=== PATIENT | female | born 1995 | race Caucasian/White ===

== ENCOUNTER 2017-05-09 09:13 | Emergency (ER) | payer BC, OTHER ==
--- NOTE | 2017-05-09 10:12 | ER Document Report ---
ED Medical Screen (RME) - General Mode of Arrival: Ambulatory Information source: Patient TRAVEL OUTSIDE OF THE [place] IN LAST 30 DAYS: No - HPI Patient complains to provider of: Vomiting and diarrhea Onset: This morning - 0300 Associated Symptoms: Other - see notes above <BARBARA DE LEON - Last Filed: 05/09/17 10:52> <JOHNY BOSS - Last Filed: 05/09/17 21:02> - General Chief Complaint: Nausea/Vomiting/Diarrhea Stated Complaint: DIARRHEA Time Seen by Provider: 05/09/17 09:59 Notes: 21 year old female with no prior medical problems presents to the ED complaining of vomiting and diarrhea that started at 0300 this morning. Patient explains that symptoms began while she was laying in bed when she suddenly began having epigastric abdominal pain. Patient reports that she has had 4 episodes of vomiting and countless episodes of diarrhea since they began early this morning. Patient denies any blood in stool or vomit. Patient denies vaginal discharge, but complains of some burning with urination. Patient's LMP 04/15/2017. (BARBARA DE LEON) - Related Data Allergies/Adverse Reactions: No Known Allergies Allergy (Unverified 05/09/17 09:16) Home Medications: Current Home Medications Dextroamphetamine/Amphetamine [Adderall 20 mg Tablet] 1 tab PO DAILY 05/09/17 [ History] Etonogestrel/Ethinyl Estradiol [Nuvaring Vaginal Ring] 1 dose VG [id number] [History] Past Medical History - General Information source: Patient - Social History Frequency of alcohol use: Rare Drug Abuse: None Renal/ Medical History: Denies: Hx Peritoneal Dialysis Past Surgical History: Reports: Hx Orthopedic Surgery - R ACL, meniscus R knee <BARBARA DE LEON - Last Filed: 05/09/17 10:52> Review of Systems - Review of Systems Constitutional: No symptoms reported EENT: No symptoms reported Cardiovascular: No symptoms reported Respiratory: No symptoms reported Gastrointestinal: See HPI, Abdominal pain - epigastric, Diarrhea, Vomiting Genitourinary: See HPI, Burning Female Genitourinary: No symptoms reported. denies: Vaginal discharge Musculoskeletal: No symptoms reported Skin: No symptoms reported Hematologic/Lymphatic: No symptoms reported Neurological/Psychological: No symptoms reported -: Yes All other systems reviewed and negative <BARBARA DE LEON - Last Filed: 05/09/17 10:52> Physical Exam - General General appearance: Alert In distress: None - Respiratory Respiratory status: No respiratory distress Breath sounds: Normal - Cardiovascular Rhythm: Regular Heart sounds: Normal auscultation - Abdominal Inspection: Normal Distension: No distension Bowel sounds: Normal Tenderness: Tender - RUQ tenderness to palpation - Psychological Associated symptoms: Normal affect, Normal mood <BARBARA DE LEON - Last Filed: 05/09/17 10:52> - Vital signs Vitals: Temp Pulse Resp BP Pulse Ox 98.1 F 107 H 17 130/70 H 99 05/09/17 09:20 05/09/17 09:20 05/09/17 09:20 05/09/17 09:20 05/09/17 09:20 Course - Laboratory Result Diagrams: 05/09/17 10:25 05/09/17 10:25 <BARBARA DE LEON - Last Filed: 05/09/17 10:52> - Laboratory Result Diagrams: 05/09/17 10:25 05/09/17 10:25 <JOHNY BOSS - Last Filed: 05/09/17 21:02> - Re-evaluation Re-evalutation: 05/09/17 21:02 I personally performed the services described in the documentation, reviewed and edited the documentation which was dictated to the scribe in my presence, and it accurately records my words and actions. (JOHNY BOSS) - Vital Signs Vital signs: Temp Pulse Resp BP Pulse Ox 99.4 F 104 H 18 129/65 H 100 05/09/17 15:26 05/09/17 15:26 05/09/17 15:26 05/09/17 15:26 05/09/17 15:26 - Laboratory Laboratory results interpreted by me: 05/09/17 05/09/17 05/09/17 10:25 10:25 11:16 WBC 16.7 H Hgb 15.7 H Seg Neutrophils % 88.8 H Lymphocytes % 5.1 L Absolute Neutrophils 14.9 H Glucose 114 H Total Bilirubin 1.4 H Direct Bilirubin 0.5 H Alkaline Phosphatase 141 H Urine Protein 100 H Ur Leukocyte Esterase TRACE H Doctor's Discharge <BARBARA DE LEON - Last Filed: 05/09/17 10:52> <JOHNY BOSS - Last Filed: 05/09/17 21:02> - Discharge Clinical Impression: Nausea vomiting and diarrhea Condition: Stable Disposition: HOME, SELF-CARE Additional Instructions: Diarrhea Diarrhea means frequent, watery stools. There are many causes. Any problem that keeps the intestinal tract from absorbing water from the stool can lead to diarrhea. A sudden new diarrhea problem is usually caused by a virus, food sensitivity, toxic bacteria, or drugs. In this case, we expect the problem to go away soon. Testing is done only if you seem seriously ill from the diarrhea. If you have chronic diarrhea, or diarrhea that keeps coming back, we need to find out why. Chronic diarrhea can be due to inflammation of the bowels such as Crohn's disease or ulcerative colitis, food sensitivity such as intolerance to lactose or wheat protein, irritable bowel syndrome, and other problems. If your diarrhea is a significant problem but it's not clear why you have it, we' ll refer you to a specialist for further testing. During an episode of diarrhea, drink small amounts (two to six ounces) of clear liquids (soft drinks, sport drinks, herb teas, broth, etc). Take fluids frequently to prevent dehydration. It's usually not a problem to take mild anti- diarrhea medication such as Imodium. As the diarrhea eases, advance to small amounts of bland food (mashed potato, toast) for 24 hours. Call the physician if blood appears in your vomit or stool, if vomiting lasts longer than 24 hours, if the abdominal pain worsens or becomes localized to one area, if you develop high fever, or if you become lightheaded and weak. Vomiting Vomiting (or nausea without vomiting) can be caused by many other different problems. It can mean that something's wrong with the stomach, such as ulcers or inflammation or the intestinal tract, such as appendicitis. But it can also be a symptom of a problem that has nothing to do with the stomach or intestines. Vomiting is common with severe headaches, earaches, tonsillitis, and kidney infections, etc. We see it with pneumonia or heart attacks. Drugs can cause nausea and vomiting. Many abdominal problems cause vomiting; for example, gallstones, kidney stones, pancreatitis, and intestinal obstruction ( blocked bowels). In most cases, curing the vomiting depends on fixing the problem that caused it. For temporary relief, we may use an anti-nausea medicine. For home use, we can prescribe suppositories, chewable pills, pills that dissolve in the mouth, or liquid anti-nausea drugs. If the vomiting seems to be caused by a problem in the stomach, acid-suppressing drugs may be prescribed as well. It's important to avoid dehydration. Sip small amounts of clear liquids ( soft drinks, tea, broth, etc) . Try to take fluids frequently even if you are vomiting to prevent dehydration. Take increasing amounts of fluid and when liquids are being consumed successfully, advance to small amounts of bland food (toast, soups, mashed potatoes, etc.) until you are able to resume a regular diet. Avoid aspirin, tobacco, and alcohol. If the vomiting worsens, if the problem that's making you vomit worsens, or if there's evidence of bleeding in the stomach (such as black, tarry stool, or bloody or black vomit), you should return immediately. Also, return if abdominal pain worsens or becomes localized to one area or you develop high fever. Call your doctor if you aren't improved in 24 hours. Prescriptions: Ondansetron [Zofran Odt 4 mg Tablet] 1 - 2 tab PO Q4H PRN #15 tab.rapdis PRN Reason: For Nausea/Vomiting Promethazine HCl [Phenergan 25 mg Tablet] 1 - 2 tab PO Q6H PRN #15 tablet PRN Reason: Forms: Return to Work Referrals: SU HUFF DO [Primary Care Provider] - Follow up in 3-5 days Scribe Documentation - Scribe Written by Daisy:: Daisy Palacios, 05/09/2017 1059 acting as scribe for :: Rafa <BARBARA DE LOEN - Last Filed: 05/09/17 10:52>
[2017-05-09] MEDS ORDERED: ONDANSETRON HCL INJ/PF 4 MG/2 ML SDV IV ONE ×2 (10:13→14:33)
[2017-05-09] MEDS ORDERED: NORMAL SALINE 1000 ML 1,000 ML IV ONE (10:16)
[2017-05-09 10:48] LABS: ABSOLUTE BASOPHILS # (AUTO) 0.1 10^3/uL (0.0-0.2); ABSOLUTE EOSINOPHILS # (AUTO) 0.2 10^3/uL (0.0-0.6); ABSOLUTE LYMPHOCYTES (AUTO) 0.9 10^3/uL (0.5-4.7); ABSOLUTE MONOCYTES (AUTO) 0.8 10^3/uL (0.1-1.4); ABSOLUTE NEUT (AUTO) 14.9 10^3/uL (1.7-8.2); BASOPHILS % (AUTO) 0.4 % (0-2); EOSINOPHILS % (AUTO) 1.1 % (0-6); HEMATOCRIT 46.5 % (36.0-47.0); HEMOGLOBIN 15.7 g/dL (12.0-15.5); HGB HCT DIFFERENCE 0.6; LYMPHOCYTES % (AUTO) 5.1 % (13-45); MEAN CORPUSCULAR HEMOGLOBIN 30.4 pg (27.0-33.4); MEAN CORPUSCULAR HGB CONC 33.8 g/dL (32.0-36.0); MEAN CORPUSCULAR VOLUME 90 fl (80-97); MONOCYTES % (AUTO) 4.6 % (3-13); RED BLOOD COUNT 5.17 10^6/uL (3.72-5.28); RED CELL DISTRIBUTION WIDTH 12.9 % (11.5-14.0); SEGMENTED NEUTROPHILS % (AUTO) 88.8 % (42-78); WHITE BLOOD COUNT 16.7 10^3/uL (4.0-10.5)
[2017-05-09 11:09] LABS: ALANINE AMINOTRANSFERASE 36 U/L (9-52); ALBUMIN 4.5 g/dL (3.5-5.0); ALKALINE PHOSPHATASE 141 U/L (38-126); ANION GAP 14 (5-19); ASPARTATE AMINO TRANSFERASE 20 U/L (14-36); BILIRUBIN,DIRECT 0.5 mg/dL (0.0-0.4); BILIRUBIN,TOTAL 1.4 mg/dL (0.2-1.3); BLOOD UREA NITROGEN 12 mg/dL (7-20); CALCIUM 9.5 mg/dL (8.4-10.2); CARBON DIOXIDE 23 mmol/L (22-30); CHLORIDE 104 mmol/L (98-107); CREATININE RESULT 0.69 mg/dL (0.52-1.25); GLUCOSE 114 mg/dL (75-110); LIPASE 44.8 U/L (23-300); POTASSIUM 4.4 mmol/L (3.6-5.0); SODIUM 140.5 mmol/L (137-145); TOTAL PROTEIN 7.5 g/dL (6.3-8.2)
--- NOTE | 2017-05-09 11:28 | RADIOLOGY REPORT (SQ) ---
EXAM DESCRIPTION: U/S ABDOMEN LIMITED W/O DOP COMPLETED DATE/TIME: 05/09/2017 11:18 am REASON FOR STUDY: RUQ pain, N/V/D COMPARISON: None. TECHNIQUE: Dynamic and static grayscale images acquired of the abdomen and recorded on PACS. Additio nal selected color Doppler and spectral images recorded. LIMITATIONS: None. FINDINGS: PANCREAS: No masses. Visualized pancreatic duct normal caliber. LIVER: No masses. Echotexture normal. LIVER VASCULATURE: Normal directional flow of the main portal vein and hepatic veins. GALLBLADDER: No stones. Normal wall thickness. No pericholecystic fluid. ULTRASOUND-DETECTED MADRIGAL'S SIGN: Negative. INTRAHEPATIC DUCTS AND COMMON DUCT: CBD and intrahepatic ducts normal caliber. No filling defects. INFERIOR VENA CAVA: Normal flow. AORTA: No aneurysm. RIGHT KIDNEY: Normal size. Normal echogenicity. No solid or suspicious masses. No hydronephrosis. No calcifications. PERITONEAL AND RIGHT PLEURAL SPACE: No ascites or effusions. OTHER: No other significant findings. IMPRESSION: NORMAL RIGHT UPPER QUADRANT ULTRASOUND. TECHNICAL DOCUMENTATION: JOB ID: [id number]- All Rights Reserved
[2017-05-09 11:58] LABS: APPEARANCE,URINE SLIGHTLY-CLOUDY; BILIRUBIN,URINE NEGATIVE (NEGATIVE); GLUCOSE, URINE NEGATIVE (NEGATIVE); KETONES,URINE NEGATIVE (NEGATIVE); LEUKOCYTE ESTERASE,URINE TRACE (NEGATIVE); NITRITE,URINE NEGATIVE (NEGATIVE); PROTEIN,URINE 100 mg/dL (NEGATIVE); URINE SPECIFIC GRAVITY 1.027; UROBILINOGEN,URINE NEGATIVE mg/dL (<2.0)
[2017-05-09 12:11] LABS: BACTERIA,URINE 1+ /HPF; RBC,URINE RARE /HPF
--- NOTE | 2017-05-09 14:31 | ER Document Report ---
ED GI/ - General Mode of Arrival: Ambulatory TRAVEL OUTSIDE OF THE [place] IN LAST 30 DAYS: No - HPI Patient complains to provider of: Abdominal pain Onset: This morning Timing/Duration: Constant Location: RUQ <JERO RAGSDALE - Last Filed: 05/09/17 22:27> <KELBY SANCHES - Last Filed: 05/09/17 22:49> - General Chief Complaint: Abdominal Pain Stated Complaint: DIARRHEA Time Seen by Provider: 05/09/17 09:59 Notes: Patient is a 21 year old female who is presenting to the emergency department complaining of abdominal pain with associated symptoms of nausea, diarrhea and burning urination onset 0300 this morning. Patient states that she has had constant diarrhea and 4 episodes of vomiting. Patient denies any blood in stool or hematuria. At bedside patient states that she is light headed and still has diarrhea, although she feels better after receiving fluid from nurses at triage. (JERO RAGSDALE) States the dysuria is only when she wipes, thus not actually burning with urination, but more burning after urination. (KELBY SANCHES) - Related Data Allergies/Adverse Reactions: No Known Allergies Allergy (Unverified 05/09/17 09:16) Home Medications: Current Home Medications Dextroamphetamine/Amphetamine [Adderall 20 mg Tablet] 1 tab PO DAILY 05/09/17 [ History] Etonogestrel/Ethinyl Estradiol [Nuvaring Vaginal Ring] 1 dose VG [id number] [History] Past Medical History - General Information source: Patient - Social History Smoking Status: Former Smoker Frequency of alcohol use: Rare Drug Abuse: None Patient has suicidal ideation: No Patient has homicidal ideation: No Past Surgical History: Reports: Hx Orthopedic Surgery - R ACL, meniscus R knee <JERO RAGSDALE - Last Filed: 05/09/17 22:27> - Social History Family History: Reviewed & Not Pertinent <KELBY SANCHES - Last Filed: 05/09/17 22:49> Review of Systems - Review of Systems Constitutional: See HPI, Chills EENT: No symptoms reported Cardiovascular: See HPI, Lightheaded Respiratory: No symptoms reported Gastrointestinal: See HPI, Abdominal pain, Diarrhea, Nausea, Vomiting Genitourinary: Burning Female Genitourinary: No symptoms reported Musculoskeletal: No symptoms reported Skin: No symptoms reported Hematologic/Lymphatic: No symptoms reported Neurological/Psychological: No symptoms reported -: Yes All other systems reviewed and negative <JERO RAGSDALE - Last Filed: 05/09/17 22:27> Physical Exam <JERO RAGSDALE - Last Filed: 05/09/17 22:27> <KELBY SANCHES - Last Filed: 05/09/17 22:49> - Vital signs Vitals: Temp Pulse Resp BP Pulse Ox 98.1 F 107 H 17 130/70 H 99 05/09/17 09:20 05/09/17 09:20 05/09/17 09:20 05/09/17 09:20 05/09/17 09:20 - Notes Notes: GENERAL: Alert, interacts well. No acute distress. HEAD: Normocephalic, atraumatic. EYES: Pupils equal, round, and reactive to light. Extraocular movements intact. ENT: Oral mucosa moist, tongue midline. NECK: Full range of motion. Supple. Trachea midline. LUNGS: Clear to auscultation bilaterally, no wheezes, rales, or rhonchi. No respiratory distress. HEART: Regular rate and rhythm. No murmurs, gallops, or rubs. ABDOMEN: Soft, RUQ tender to palpation, mild epigastric tenderness to palpation. Non-distended. Bowel sounds present in all 4 quadrants. EXTREMITIES: Moves all 4 extremities spontaneously. No edema, radial and dorsalis pedis pulses 2/4 bilaterally. No cyanosis. NEUROLOGICAL: Alert and oriented x3. Normal speech. PSYCH: Normal affect, normal mood. SKIN: Warm, dry, normal turgor. No rashes or lesions noted. (JERO RAGSDALE) Course - Laboratory Result Diagrams: 05/09/17 10:25 05/09/17 10:25 <JERO RAGSDALE - Last Filed: 05/09/17 22:27> - Laboratory Result Diagrams: 05/09/17 10:25 05/09/17 10:25 <KELBY SANCHES - Last Filed: 05/09/17 22:49> - Re-evaluation Re-evalutation: 05/09/17 14:32 CBC shows leukocytosis of 16.7, CMP grossly unremarkable, somewhat elevated total and direct bilirubin, lipase normal, serum hCG negative, urinalysis shows 100 protein and trace leukocyte esterase, 1+ bacteria, patient is not having symptoms of urinary tract infection and she is having diarrhea, suspect this may be contamination however has been sent for culture. Right upper quadrant ultrasound does not show any signs of cholecystitis or cholelithiasis. Patient continues to have mild tenderness palpation in the right upper quadrant without any guarding rigidity or rebounding, negative Thomas sign. Patient does not have any signs of acute intra-abdominal process at this time. Patient's vomiting has resolved, diarrhea has slowed down. Patient is tolerating oral liquids without difficulty after 1 L of normal saline and a dose of Zofran. Patient will be discharged to home. (KELBY SANCHES) - Vital Signs Vital signs: Temp Pulse Resp BP Pulse Ox 99.4 F 104 H 18 129/65 H 100 05/09/17 15:26 05/09/17 15:26 05/09/17 15:26 05/09/17 15:26 05/09/17 15:26 - Laboratory Laboratory results interpreted by me: 05/09/17 05/09/17 05/09/17 10:25 10:25 11:16 WBC 16.7 H Hgb 15.7 H Seg Neutrophils % 88.8 H Lymphocytes % 5.1 L Absolute Neutrophils 14.9 H Glucose 114 H Total Bilirubin 1.4 H Direct Bilirubin 0.5 H Alkaline Phosphatase 141 H Urine Protein 100 H Ur Leukocyte Esterase TRACE H Discharge <JERO RAGSDALE - Last Filed: 05/09/17 22:27> <KELBY SANCHES - Last Filed: 05/09/17 22:49> - Discharge Clinical Impression: Nausea vomiting and diarrhea Condition: Stable Disposition: HOME, SELF-CARE Additional Instructions: Diarrhea Diarrhea means frequent, watery stools. There are many causes. Any problem that keeps the intestinal tract from absorbing water from the stool can lead to diarrhea. A sudden new diarrhea problem is usually caused by a virus, food sensitivity, toxic bacteria, or drugs. In this case, we expect the problem to go away soon. Testing is done only if you seem seriously ill from the diarrhea. If you have chronic diarrhea, or diarrhea that keeps coming back, we need to find out why. Chronic diarrhea can be due to inflammation of the bowels such as Crohn's disease or ulcerative colitis, food sensitivity such as intolerance to lactose or wheat protein, irritable bowel syndrome, and other problems. If your diarrhea is a significant problem but it's not clear why you have it, we' ll refer you to a specialist for further testing. During an episode of diarrhea, drink small amounts (two to six ounces) of clear liquids (soft drinks, sport drinks, herb teas, broth, etc). Take fluids frequently to prevent dehydration. It's usually not a problem to take mild anti- diarrhea medication such as Imodium. As the diarrhea eases, advance to small amounts of bland food (mashed potato, toast) for 24 hours. Call the physician if blood appears in your vomit or stool, if vomiting lasts longer than 24 hours, if the abdominal pain worsens or becomes localized to one area, if you develop high fever, or if you become lightheaded and weak. Vomiting Vomiting (or nausea without vomiting) can be caused by many other different problems. It can mean that something's wrong with the stomach, such as ulcers or inflammation or the intestinal tract, such as appendicitis. But it can also be a symptom of a problem that has nothing to do with the stomach or intestines. Vomiting is common with severe headaches, earaches, tonsillitis, and kidney infections, etc. We see it with pneumonia or heart attacks. Drugs can cause nausea and vomiting. Many abdominal problems cause vomiting; for example, gallstones, kidney stones, pancreatitis, and intestinal obstruction ( blocked bowels). In most cases, curing the vomiting depends on fixing the problem that caused it. For temporary relief, we may use an anti-nausea medicine. For home use, we can prescribe suppositories, chewable pills, pills that dissolve in the mouth, or liquid anti-nausea drugs. If the vomiting seems to be caused by a problem in the stomach, acid-suppressing drugs may be prescribed as well. It's important to avoid dehydration. Sip small amounts of clear liquids ( soft drinks, tea, broth, etc) . Try to take fluids frequently even if you are vomiting to prevent dehydration. Take increasing amounts of fluid and when liquids are being consumed successfully, advance to small amounts of bland food (toast, soups, mashed potatoes, etc.) until you are able to resume a regular diet. Avoid aspirin, tobacco, and alcohol. If the vomiting worsens, if the problem that's making you vomit worsens, or if there's evidence of bleeding in the stomach (such as black, tarry stool, or bloody or black vomit), you should return immediately. Also, return if abdominal pain worsens or becomes localized to one area or you develop high fever. Call your doctor if you aren't improved in 24 hours. Prescriptions: Ondansetron [Zofran Odt 4 mg Tablet] 1 - 2 tab PO Q4H PRN #15 tab.rapdis PRN Reason: For Nausea/Vomiting Promethazine HCl [Phenergan 25 mg Tablet] 1 - 2 tab PO Q6H PRN #15 tablet PRN Reason: Forms: Return to Work Referrals: SU HUFF DO [Primary Care Provider] - Follow up in 3-5 days Scribe Attestation: 05/09/17 22:49 I personally performed the services described in the documentation, reviewed and edited the documentation which was dictated to the scribe in my presence, and it accurately records my words and actions. (KELBY SANCHES) Scribe Documentation - Scribe Written by Daisy:: Daisy Gracia, 05/09/2017 15:36 acting as scribe for :: Shaw <JERO RAGSDALE - Last Filed: 05/09/17 22:27>
[2017-05-09] MEDS ORDERED: LOPERAMIDE HCL 2 MG CAPSULE PO ONE (14:33)
[2017-05-09 15:28] VITALS: BP 129/65
== END 2017-05-09 15:41 | disposition home or self-care (01) ==
LOC: ER 09:13
DX: R19.7 Diarrhea, unspecified (principal); R11.2 Nausea with vomiting, unspecified; R10.11 Right upper quadrant pain; D72.829 Elevated white blood cell count, unspecified; R30.0 Dysuria; R42 Dizziness and giddiness; R68.83 Chills (without fever); Z87.891 Personal history of nicotine dependence
CPT/HCPCS: 99284; 96361; 96374; 36415; 87086; 83690; 84703; 85025; 87088; 80053; 81001; 76705; J2405; J7030